=== PATIENT | female | born 1970 | race African-American/Black ===

== ENCOUNTER 2022-01-12 10:03 | Emergency (ER) | payer MEDICAID ==
[~2022-01-12] VITALS: Ht 172.7 cm; Wt 71.0 kg
[2022-01-12] MEDS ORDERED: METHOCARBAMOL 750MG TABLET PO NR (15:30)
[2022-01-12] MEDS ORDERED: KETOROLAC 60MG/2ML VIAL IM NR (15:30)
[2022-01-12] MEDS ORDERED: ACETAMINOPHEN 325MG TABLET PO ONE (17:45)
[2022-01-12] MEDS ORDERED: IBUP-2029 MT (18:44)
[2022-01-12 20:46] VITALS: BP 107/67
== END 2022-01-12 21:15 | disposition short-term general hospital (02) ==
LOC: ER 10:35
DX: M51.16 Intervertebral disc disorders with radiculopathy, lumbar region (principal); M50.322 Other cervical disc degeneration at C5-C6 level; R32 Unspecified urinary incontinence
CPT/HCPCS: 72125; 72131; 72148; 96372; 99284; J1885